=== PATIENT | female | born 1980 | race Caucasian/White ===

== ENCOUNTER 2020-11-11 05:02 | Emergency (ER) | payer OTHER ==
[~2020-11-11] VITALS: Ht 154.9 cm; Wt 194.1 kg
[~2020-11-11 05:02] MED LIST: PREDNISONE10 MG; SULINDAC200 MG; TOPAMAX25 MG
[2020-11-11] MEDS ORDERED: ORPHENADRINE C100 MG PO (11:10)
[2020-11-11] MEDS ORDERED: DICLOFENAC POTA50 MG PO (11:10)
== END 2020-11-11 13:21 ==
LOC: ER 05:02
DX: S73.192A Other sprain of left hip, initial encounter (principal); S73.191A Other sprain of right hip, initial encounter; M54.5 Low back pain; X50.9XXA Other and unspecified overexertion or strenuous movements or postures, initial encounter; Y93.89 Activity, other specified; Y92.89 Other specified places as the place of occurrence of the external cause; Y99.8 Other external cause status